=== PATIENT | female | born 1970 | race Two or more races ===

== ENCOUNTER 2019-04-12 13:00 | Emergency (ER) | payer MEDICAID, OTHER ==
[~2019-04-12] VITALS: Ht 157.5 cm; Wt 66.0 kg
[~2019-04-12 13:00] MED LIST: DOCU-131 PO; GLYB5TAB3 PO; IBUP-1223 PO; OXYC-302 PO; PREN1TAB56 PO
[2019-04-12 13:16] VITALS: BP 154/82
--- NOTE | 2019-04-12 13:26 | NUR ---
FIRST CONTACT WITH PT. PT STATES "I HAD AN MRI ON MY RIGHT SHOULDER 2 WEEKS AGO. I SAW MY PCP FRIDAY AND I'M WAITING FOR A REFERRAL FOR SURGERY. HE GAVE ME PAIN MEDS, BUT THE PAIN IS WORSE OVER THE WEEKEND." NO ANY OTHER SYMPTOMS. PT'S AOX4. RESPS EVEN AND UNLABORED. AWAITING ORDERES.
[2019-04-12] MEDS ORDERED: HYDROcodone/APAP 5/325 TABLET ONE (13:45)
--- NOTE | 2019-04-12 13:48 | NUR ---
PT MEDICATED PER EMAR FOR PAIN. PT TOLERATED WELL.
[2019-04-12] MEDS ORDERED: HYDROcodone/APAP 5/325 TABLET PO ONE (14:00)
--- NOTE | 2019-04-12 14:35 | NUR ---
Patient given discharge instructions and they have confirmed that they understand the instructions. Patient ambulatory with steady gait.
== END 2019-04-12 14:36 | disposition home or self-care (01) ==
LOC: ED 14:30
DX: G89.29 Other chronic pain (principal); M25.511 Pain in right shoulder; S46.011D Strain of muscle(s) and tendon(s) of the rotator cuff of right shoulder, subsequent encounter; X58.XXXD Exposure to other specified factors, subsequent encounter
CPT/HCPCS: 99283